=== PATIENT | female | born 1965 | race Two or more races ===

== ENCOUNTER → 2025-06-18 | Day surgery (SDC) | payer OTHER ==
--- NOTE | 2025-06-18 12:20 | RAD REPORT ---
EXAMINATION: ULTRASOUND GUIDED VACUUM-ASSISTED RIGHT BREAST CORE NEEDLE BIOPSY RIGHT breast core needle biopsy; percutaneous, using ultrasound guidance. Post Bx mammogram: None CLINICAL INDICATION:. N63.11 INFORMED CONSENT: The risks, benefits, alternatives, and potential complications of ultrasound guided vacuum-assisted RIGHT breast biopsy were discussed with the patient. An informed consent sheet was signed. The risks include but are not limited to the following: bleeding, infection, vascular injury, organ injury, pneumothorax, allergic reaction, and the need for emergent surgery/procedures. BIOPSY TARGET: Right breast mass, inferior approach. NEEDLE: 12 gauge Celero vacuum-assisted core biopsy needle, 3 cores. SEDATION: None. COMPLICATIONS: None. TECHNIQUE: Appropriate audible time out was performed. The skin was prepped and draped in the normal fashion. The soft tissues were anesthetized with lidocaine. Utilizing real-time ultrasound guidance, a vacuum-assisted core biopsy needle was placed into the breast location described below wi th removal of tissue for pathology evaluation. Compression was held. Hemostasis was achieved. Sterile dressing was applied. Patient tolerated the procedure well without immediate complication. e technologist was in the room with the radiologist throughout the procedure. IMPRESSION: Successful ultrasound guided vacuum-assisted core biopsy of the RIGHT breast as described above.
== END ==
LOC: DS 09:30
PROVIDERS: ATTEND Family Medicine
DX: C50.911 Malignant neoplasm of unspecified site of right female breast (principal)
CPT/HCPCS: 19083; 88305